=== PATIENT | male | born 1955 | race Caucasian/White ===

== ENCOUNTER 2021-11-15 08:00 | Day surgery (SDC) | payer BC ==
[~2021-11-15] VITALS: Ht 176.5 cm; Wt 87.3 kg
[2021-11-15] VITALS (9 sets, daily range): BP systolic 103–180; BP diastolic 66–98
[2021-11-15 06:58] LABS: HEMATOCRIT 43 % (40-54); HEMOGLOBIN 14.1 g/dL (13.3-17.7); MEAN CORPUSCULAR HEMOGLOBIN 30 pg (25-34); MEAN CORPUSCULAR HGB CONC 33 g/dL (32-36); MEAN CORPUSCULAR VOLUME 92 fL (80-99); MEAN PLATELET VOLUME 10.5 fL (9.0-12.2); PLATELET COUNT 222 10^3/uL (130-400); WHITE BLOOD COUNT 7.4 10^3/uL (4.3-11.0)
[2021-11-15 07:00] LABS: BILIRUBIN,URINE NEGATIVE (NEGATIVE); CLARITY,URINE CLEAR; COLOR,URINE YELLOW; GLUCOSE, URINE (UA) NEGATIVE (NEGATIVE); KETONES,URINE NEGATIVE (NEGATIVE); LEUKOCYTE ESTERASE ,URINE NEGATIVE (NEGATIVE); NITRITE,URINE NEGATIVE (NEGATIVE); PH,URINE 5.5 (5-9); PROTEIN,URINE NEGATIVE (NEGATIVE)
--- NOTE | 2021-11-15 07:09 | Diagnostic Imaging Report ---
INDICATION: Abnormal stress test with shortness of breath. FINDINGS: Portable chest. The lungs are well-aerated and clear. The heart is not enlarged. No pulmonary edema. No pneumothorax or pleural effusion. IMPRESSION: Normal portable chest. Dictated by: Dictated on workstation # [id number]
[2021-11-15 07:16] LABS: BACTERIA,URINE TRACE /HPF; WBC,URINE RARE /HPF
[2021-11-15 07:37] LABS: ALBUMIN 4.1 GM/DL (3.2-4.5); POTASSIUM 3.7 MMOL/L (3.6-5.0)
[2021-11-15 07:38] LABS: CALCIUM 9.2 MG/DL (8.5-10.1)
[2021-11-15 07:40] LABS: TOTAL PROTEIN 6.7 GM/DL (6.4-8.2)
[2021-11-15 07:41] LABS: BILIRUBIN,TOTAL 0.7 MG/DL (0.1-1.0)
[2021-11-15 07:43] LABS: CREATININE SERUM 1.07 MG/DL (0.60-1.30)
[~2021-11-15 08:00] MED LIST: ASPI-932 PO; CYAN100088 PO; HEParin (CATH LAB) 2,000 ML IV ONE; HEParin 1000 UNIT/ML (10ML VIAL) FOR BOLUS ONE; LIDOCAINE 1% INJ 30 ML (XYLOCAINE) VIAL ONE; METO50TA7 PO; MIDAZOLAM 2 MG/2 ML (VERSED) VIAL ONE; NITRO DRIP 25000 MCG/D5W 250 ML IV ONE; NS IV 1000 ML 1,000 ML IV SCH; NS IV 1000 ML 1,000 ML ONE; OMEP40CA6 PO; PEDI1TAB46 PO; PRAV40TA2 PO; SUMA100T3 PO; TMSL.4C PO; VERAPAMIL 5 MG/2 ML (CALAN) VIAL IV ONE; fentaNYL INJ 100 MCG/2 ML AMP ONE
--- NOTE | 2021-11-15 08:00 | Cardiac Procedure Note-CS/ASA ---
Pre-Procedure Note Pre-Op Procedure Note Date of Available H&P: Nov 13, 2021 Date H&P Reviewed: Nov 15, 2021 Time H&P Reviewed: 08:00 History & Physical: H&P Reviewed, Patient Examed, No changes noted Pre-Operative Diagnosis: CAD Conscious Sedation Pre-Proced Time 08:00 ASA Score 3 For ASA 3 and 4: Consider anesthesia and medical clearance. Also, for patients with a history of failed moderate sedation consider anesthesia. Airway Lungs Heart ASA score ASA 1: a normal healthy patient ASA 2: a patient with a mild systemic disease (mid diabetes, controlled hypertension, obesity X ASA 3: a patient with a severe systemic disease that limits activity (angina, COPD, prior Myocardial infarction) ASA 4: a patient with an incapacitating disease that is a constant threat to life (CHF, renal failure) ASA 5: a moribund patient not expected to survive 24 hrs. (ruptured aneurysm) ASA 6: a declared brain- patient whose organs are being harvested. For emergent operations, add the letter E after the classification Mallampati Classification Grade 3 Sedation Plan Analgesia, Amnesia, Plan communicated to team members, Discussed options with patient/fam, Discussed risks with patient/fam The patient is an appropriate candidate to undergo the planned procedure, sedation, and anesthesia. The patient immediately re-assessed prior to indication. VIKTOR LI MD Nov 15, 2021 08:00
--- NOTE | 2021-11-15 08:44 | Discharge Inst-Post CATH ---
Discharge Inst-CATH/EP Problems Reviewed?: Yes Post Cardiac Cath/EP D/C Inst Follow Up/Plan Appointment with Dr. Cunningham in 2 to 4 weeks <b>CARDIAC CATH/EP PROCEDURE DISCHARGE INSTRUCTIONS</b> ACTIVITY * Go Home directly and rest. * Limit activity of the leg (or wrist if it was used) for 7 days including aerobics, swimming, jogging, bicycling, etc. * Restrict stair-climbing for 7 days if possible, if not, climb up with your non-cath leg, then bring together on the same step. * Avoid lifting, pushing, pulling or excessive movement of the affected extremity for 7 days. * Customary sexual activity may be resumed after 2 days-use caution not to use a position that strains or causes pain to the affected extremity. * No driving for 24 hours. * NO SMOKING. * Avoid straining for bowel movements for 7 days. * Gentle walking on level ground is allowed. * Returning to work will depend on the type of procedure and the results. Your doctor will discuss this with you. CALL YOUR DOCTOR FOR ANY OF THE FOLLOWING: *If bleeding from the puncture site occurs- Apply gentle pressure to site with clean cloth and call your doctor or EMS. * If a knot or lump forms under the skin, increases in size, or causes pain. * If bruising appears to be worsening or moving further down your leg instead of disappearing. * Temperature above 101 F. CARE OF YOUR GROIN INCISION; * Bruising or purple discoloration of the skin near the puncture site is common. * You may shower only, no bathtub bathing for 5 days. Be careful to avoid slipping as your leg may feel stiff. * If a closure device was used on your femoral artery, please see the attached guide regarding care of the device and your leg. * Leave dressing on FOR 24 hours. CARE OF YOUR WRIST INCISION; * Bruising or purple discoloration of the skin near the puncture site is common. * You may shower. * DO NOT submerge wrist. * Leave dressing on FOR 24 hours. VIKTOR LI MD Nov 15, 2021 08:44
[2021-11-15] MEDS ORDERED: NS IV 1000 ML 1,000 ML IV SCH (08:45)
--- NOTE | 2021-11-15 08:48 | Cardiac Cath Report ---
Cardiac Cath Report Physician (s)/Economic Development Coordinator (s) Physician VIKTOR LI MD Pre-Procedure Diagnosis Pre-Procedure Diagnosis: CAD Post-Procedure Note Procedure Start Date: Nov 15, 2021 Name of Procedure: Coronary angiogram Findings/Procedure Note PROCEDURE NOTE: 66-year-old gentleman with history of mitral valve repair, had an abnormal stress test, scheduled for cardiac catheterization possible PTCA. After explaining the procedure to the patient, all pros and cons were explained, all questions were answered. The patient signed the consent and then he was placed on the cardiac catheterization laboratory. Groin was prepped SL fashion local anesthesia was used. Sheath placed in the right radial artery, [place] catheter was advanced, did not cross the aortic valve, engage the right and left coronary system, angiogram was done then the catheter was removed At the end of the procedure the sheath was removed. Vascular band was used FINDINGS: Hemodynamics LV did not cross the aortic valve Aorta 94/61 mean of 74 ANATOMY: Left Main is free of obstructive disease Left Anterior Descending has mild tortuosity with no significant obstructive disease Left Circumflex is dominant artery with no obstructive disease Right Coronary Artery is nondominant artery with no obstructive disease CONCLUSION: Mild coronary artery disease nonobstructive disease DISCUSSION AND RECOMMENDATION: Abnormal stress test is probably due to extracardiac attenuation or scarring from the mitral valve surgery. Anesthesia Type: Conscious Sedation Estimated blood loss (mL): 10 ml Contrast Amount: 23 ml Total Radiation Dose: 322 mGy Post-Procedure Diagnosis Post-operative diagnosis: Coronary artery disease Mitral valve repair Hypertension VIKTOR LI MD Nov 15, 2021 08:48
== END 2021-11-15 12:00 | disposition home or self-care (01) ==
LOC: CATH 08:00 → CSD 08:53 → CATH 12:00
PROVIDERS: ATTEND Internal Medicine Cardiovascular Disease
DX: I25.10 Atherosclerotic heart disease of native coronary artery without angina pectoris (principal); I10 Essential (primary) hypertension; K21.9 Gastro-esophageal reflux disease without esophagitis; N40.0 Benign prostatic hyperplasia without lower urinary tract symptoms; Z95.2 Presence of prosthetic heart valve; Z79.899 Other long term (current) drug therapy; E78.5 Hyperlipidemia, unspecified
CPT/HCPCS: 71045; 80053; 80061; 81000; 85027; 85610; 85730; 87081; 93005; 93454; C1894; 36415